=== PATIENT | male | born 1975 | race Caucasian/White ===

== ENCOUNTER 2017-07-02 13:27 | Emergency (ER) | payer SELFPAY ==
[~2017-07-02] VITALS: Ht 185.4 cm; Wt 95.5 kg
[2017-07-02 13:34] VITALS: BP 145/87
[2017-07-02] MEDS ORDERED: ACETAMINOPHEN/CODEINE 300-30 MG TABLET PO ONE (14:45)
== END 2017-07-02 15:18 | disposition home or self-care (01) ==
LOC: EMS 13:30
DX: S90.32XA Contusion of left foot, initial encounter (principal); F17.210 Nicotine dependence, cigarettes, uncomplicated; W20.8XXA Other cause of strike by thrown, projected or falling object, initial encounter; Y93.89 Activity, other specified; Y92.89 Other specified places as the place of occurrence of the external cause; Y99.9 Unspecified external cause status
CPT/HCPCS: 99284; 99406